=== PATIENT | female | born 1995 | race Hispanic/Latino ===

== ENCOUNTER 2017-08-27 17:50 | Emergency (ER) | payer OTHER ==
[2017-08-27 21:45] LABS: HEMATOCRIT 38.4 % (36.0-47.0); HEMOGLOBIN 13.1 g/dl (12.0-15.5); MEAN CORPUSCULAR HEMOGLOBIN 28.2 pg (27.0-33.0); MEAN CORPUSCULAR HGB CONC 34.1 g/dl (32.0-36.5); MEAN CORPUSCULAR VOLUME 82.8 fl (80.0-96.0); PLATELET COUNT, AUTOMATED 566 10^3/uL (150-450); RED BLOOD COUNT 4.64 10^6/uL (4.00-5.40); RED CELL DISTRIBUTION WIDTH 12.5 % (11.5-14.5); WHITE BLOOD COUNT 18.5 10^3/uL (4.0-10.0)
[2017-08-27 22:12] LABS: HCG, SERUM QUANTITATIVE 100 MIU/ML
[2017-08-27 22:27] LABS: KETONE, URINE AUTO RFX NEGATIVE (NEGATIVE); LEUKOCYTE ESTERASE UR AUTO RFX NEGATIVE (NEGATIVE); MUCUS, URINE RFX SMALL (NEGATIVE); NITRITE, URINE AUTO RFX NEGATIVE (NEGATIVE); RBC, URINE AUTO RFX 2 /HPF (0-3); SPECIFIC GRAVITY UR AUTO RFX 1.019 (1.002-1.035); SQUAM EPITHELIAL CELL UR AURFX 2 /HPF (0-6); WBC, URINE AUTO RFX 1 /HPF (0-3)
[2017-08-27 22:30] LABS: ADD MANUAL DIFFER YES; DIFF SLIDE NUMBER 373; POSITIVE DIFF POS FLAG
[2017-08-27 22:56] LABS: ATYPICAL LYMPH 1 % (0-5); EOSINOPHILS 2 % (0-5); LYMPHOCYTES 38 % (16-52); MONOCYTES 6 % (0-8); NEUTROPHILS 53 % (35-75); PLATELET ESTIMATE INCREASED (NORMAL)
== END 2017-08-28 00:08 | disposition home or self-care (01) ==
LOC: M ED 08-28 00:08
DX: Z32.01 Encounter for pregnancy test, result positive (principal); O34.41 Maternal care for other abnormalities of cervix, first trimester; O34.81 Maternal care for other abnormalities of pelvic organs, first trimester
CPT/HCPCS: 76801

== ENCOUNTER → 2017-12-07 | Outpatient (REF) | payer OTHER | LOC: M LAB REF 12:18 | DX: J06.9 Acute upper respiratory infection, unspecified (principal) ==

== ENCOUNTER 2017-12-09 05:30 | Emergency (ER) | payer OTHER | END 2017-12-09 08:29 | disposition home or self-care (01) | LOC: M ED 05:30 | DX: O99.89 Other specified diseases and conditions complicating pregnancy, childbirth and the puerperium (principal); H66.90 Otitis media, unspecified, unspecified ear; O99.512 Diseases of the respiratory system complicating pregnancy, second trimester; J06.9 Acute upper respiratory infection, unspecified; Z3A.19 19 weeks gestation of pregnancy | CPT/HCPCS: 87880 ==